=== PATIENT | male | born 1990 | race Caucasian/White ===

== ENCOUNTER 2019-08-10 05:37 | Outpatient (RCR) | payer BC ==
[~2019-08-10] VITALS: Ht 185 cm; Wt 59.0 kg
[~2019-08-10 05:37] MED LIST: MULT-1136 PO
== END 2019-08-10 15:02 | disposition home or self-care (01) ==
LOC: PREOP 05:37
PROVIDERS: ATTEND Surgery
DX: Z01.812 Encounter for preprocedural laboratory examination (principal); K92.1 Melena; Z20.828 Contact with and (suspected) exposure to other viral communicable diseases
CPT/HCPCS: 87635

== ENCOUNTER 2019-08-14 08:34 | Day surgery (SDC) | payer BC ==
[~2019-08-14] VITALS: Ht 185 cm; Wt 59.0 kg
[2019-08-14] VITALS (10 sets, daily range): BP systolic 106–130; BP diastolic 59–91
[2019-08-14] MEDS ORDERED: LACTATED RINGERS 1,000 ML IV STA (08:41)
[2019-08-14] MEDS ORDERED: LACTATED RINGERS 1,000 ML IV ONE (08:43)
--- NOTE | 2019-08-14 09:19 | Progress Note-Pre Operative ---
Pre-Operative Progress Note H&P Reviewed The H&P was reviewed, patient examined and no changes noted. Time Seen by Provider: 09:16 Date H&P Reviewed: Aug 14, 2019 Time H&P Reviewed: 09:16 Pre-Operative Diagnosis: rectal bleed, change in bowel habits, family hx colon CA IVETTE CARUSO DO Aug 14, 2019 09:19
--- OUTSIDE RECORDS SUMMARY | 2019-08-14 09:25 | XMS REPORT | Continuity of Care Document ---
Author Organization Unknown Address Unknown Phone Unavailable Allergies Active Description Code Type Severity Reaction Onset Reported/Identified Relationship to Patient Clinical Status Yes No Known Drug Allergies [id number] Drug Allergy Unknown N/A 08/07/2019 Medications There is no data. Problems There is no data. Procedures There is no data. Results Test Result Range CBC w/MANUAL DIFF - 07/14/19 07:48 WHITE BLOOD CELL COUNT 3.3 Thousand/uL 3 .8-10.8 RED BLOOD CELL COUNT 5.09 Million/uL 4.2 0-5.80 HEMOGLOBIN 16.0 g/dL 13.2-17.1 HEMATOCRIT 46.6 % 38.5-50.0 MCV 91.6 fL 80.0-100.0 MCH 31.4 pg 27.0-33.0 MCHC 34.3 g/dL 32.0-36.0 RDW 13.0 % 11.0-15.0 PLATELET COUNT 206 Thousand/uL 140-400 MPV 11.3 fL 7.5-12.5 ABSOLUTE NEUTROPHILS 1109 cells/uL 1500- 7800 ABSOLUTE MONOCYTES 241 cells/uL 200-950 ABSOLUTE EOSINOPHILS 119 cells/uL 15-500 ABSOLUTE BASOPHILS 0 cells/uL 0-200 NEUTROPHILS 33.6 % NRG LYMPHOCYTES 55.5 % NRG MONOCYTES 7.3 % NRG EOSINOPHILS 3.6 % NRG BASOPHILS 0 % NRG ABSOLUTE LYMPHOCYTES 1832 cells/uL 850-3 900 PLATELET ESTIMATION ADEQUATE ADEQUATE COMMENT(S) NRG GC/CHLAMYDIA (SWAB OR URINE)-RAPID - 06/18 07:36 CHLAMYDIA TRACHOMATIS RNA, TMA DETECTED NOT DETECTED NEISSERIA GONORRHOEAE RNA, TMA NOT DETECTED NOT DETECTED COMMENT NRG Coronavirus SARS-CoV-2 SO 2018 - 0 08:02 Coronavirus Ab [Units/volume] in Serum Negative Negative Encounters ACCT No. Visit Date/Time Discharge Status Pt. Type Provider Facility Loc./Unit Complaint [id number] 08/03/2019 07:10:00 08/03/2019 23:59: 59 CLS Outpatient [facility] [id number] 08/03/2019 07:10:00 Document Registration [id number] 07/14/2019 07:45:00 Document Registration [id number] 08/10/2019 05:37:00 020 15:02:00 DIS Outpatient IVETTE CARUSO DO [facility] PREOP COLONOSCOPY [id number] 08/14/2019 10:20:00 P EN Preadmit IVETTE CARUSO DO [facility] ENDO BLOOD IN STOOLS
[2019-08-14] MEDS ORDERED: PROPOFOL INJECTION 50 ML IV ONE (09:34)
[2019-08-14] MEDS ORDERED: MIDAZOLAM 2 MG/2 ML (VERSED) VIAL ONE (09:35)
--- NOTE | 2019-08-14 09:56 | Progress Note-Post Operative ---
Post-Operative Progess Note Surgeon (s)/Comb Tender (s) Surgeon IVETTE CARUSO DO Comb Tender: none Pre-Operative Diagnosis rectal bleed, change in bowel habits, family hx colon CA Post-Operative Diagnosis same plus very vascular colon internal hemorrhoids Procedure & Operative Findings Date of Procedure 08/14/19 Procedure Performed/Findings colonoscopy Anesthesia Type IV sedation by GOVERNOR ASSEMBLER Estimated Blood Loss Estimated blood loss (mL): none Specimens/Packing Specimens Removed none IVETTE CARUSO DO Aug 14, 2019 09:56
--- NOTE | 2019-08-14 09:57 | Endoscopy Discharge Instruct ---
Endo Procedure/Findings Findings 1.: Vascular Ectasias 2.: Internal Hemorrhoids Discharge Instructions - Activity: You might feel a little sleepy until tomorrow. This is due to the medicine you received to relax you. Until tomorrow, you should: NOT drive a car, operate machinery or power tools. NOT drink any alcoholic beverages. NOT make any important decisions or sign importortant papers. Do not return to work until tomorrow, unless otherwise instructed. Resume previous activities tomorrow. Diet: Start by taking liquids. If you tolerate liquids, advance to solid food. make appt for 2 weeks 1.: Colonscopy in 10 years Notify Physician - If you experience excessive bleeding, unusual abdominal pain, fever, or chest pain, contact your doctor immediately. IVETTE CARUSO DO Aug 14, 2019 09:57
--- NOTE | 2019-08-14 11:07 | Anesthesia-General Post-Op ---
MAC Patient Condition Mental Status/LOC: Same as Preop Cardiovascular: Satisfactory Nausea/Vomiting: Absent Respiratory: Satisfactory Pain: Controlled Complications: Absent Post Op Complications Complications None Follow Up Care/Instructions Patient Instructions None needed. Anesthesiology Discharge Order Discharge Order Patient is doing well, no complaints, stable vital signs, no apparent adverse anesthesia problems. No complications reported per nursing. JOSHUA BELLO CRNA Aug 14, 2019 11:07
--- NOTE | 2019-08-15 01:18 | OPERATIVE REPORT ---
DATE OF SERVICE: 08/14/2019 PREOPERATIVE DIAGNOSES: Rectal bleed, change in bowel habits and family history of colon cancer. POSTOPERATIVE DIAGNOSES: Internal hemorrhoids and some increased vascularity of the colon. PROCEDURE: Colonoscopy. SURGEON: Miguel Sanderson DO INBOUND SALES REPRESENTATIVE: None. ANESTHESIA: IV sedation by the RETORT SETTER. SPECIMENS: None. BLOOD LOSS: None. FLUIDS: Per anesthesia. POSTOPERATIVE CONDITION: Stable. INDICATION FOR PROCEDURE: The patient is a 29-year-old male who had some change in bowel habits. He had a rectal bleed. He has a strong family history of colon cancer. FINDINGS: The patient had very vascular looking colon and some internal hemorrhoids, but no other obvious pathology. PROCEDURE NOTE: After informed consent was obtained, the patient was brought to the endoscopy suite, placed in bed in left lateral decubitus position. He was administered IV sedation by the RETORT SETTER who then monitored his vitals the entire time, heart rate, blood pressure and pulse ox and the scope was inserted, pushed all the way into about 150 cm, able to get to the cecum, took a picture of appendiceal orifice, noted the ileocecal valve and then slowly withdrew the scope insufflating to look circumferentially at the oliver looking the cecum, up the ascending colon to the hepatic flexure, then down the transverse colon, splenic flexure, into the descending colon down into the sigmoid. All throughout here, saw a lot of increased vascularity. Pictures were taken, but there are no ulcers and no signs of any colitis in the rectal vault. Retroflexed the scope and saw some small internal hemorrhoids, took a picture of this and then removed the scope. The patient tolerated the procedure. He was recovered in endoscopy suite. Job ID: [id number] DocumentID: [id number] Dictated Date: 08/14/2019 16:34:48 Talent Recruiter Date: 08/15/2019 01:17:56 Dictated By: MIGUEL SANDERSON DO
== END 2019-08-14 11:00 | disposition home or self-care (01) ==
LOC: ENDO 08:34
PROVIDERS: ATTEND Surgery
DX: K62.5 Hemorrhage of anus and rectum (principal); K64.8 Other hemorrhoids; K63.89 Other specified diseases of intestine; Z80.0 Family history of malignant neoplasm of digestive organs; K21.9 Gastro-esophageal reflux disease without esophagitis; F41.9 Anxiety disorder, unspecified